=== PATIENT | female | born 1995 | race Two or more races ===

== ENCOUNTER 2016-12-31 19:11 | Emergency (ER) | payer OTHER ==
[~2016-12-31] VITALS: Ht 157.5 cm; Wt 81.2 kg
[2016-12-31 19:12] VITALS: BP 127/82
== END 2016-12-31 20:18 | disposition home or self-care (01) ==
LOC: M ED 19:43
DX: S63.632A Sprain of interphalangeal joint of right middle finger, initial encounter (principal); R07.89 Other chest pain; X50.1XXA Overexertion from prolonged static or awkward postures, initial encounter; Y92.099 Unspecified place in other non-institutional residence as the place of occurrence of the external cause; Y93.89 Activity, other specified; Y99.9 Unspecified external cause status

== ENCOUNTER 2017-01-22 18:18 | Emergency (ER) | payer OTHER ==
[~2017-01-22] VITALS: Ht 157.5 cm; Wt 86.6 kg
[2017-01-22 18:19] VITALS: BP 116/71
[2017-01-22] MEDS ORDERED: PRENTAB31 PO (18:29)
== END 2017-01-22 22:07 | disposition left against medical advice (07) ==
LOC: M ED 19:14
DX: R10.9 Unspecified abdominal pain (principal); Z53.21 Procedure and treatment not carried out due to patient leaving prior to being seen by health care provider

== ENCOUNTER 2017-01-24 16:02 | Emergency (ER) | payer OTHER ==
[~2017-01-24] VITALS: Ht 157.5 cm; Wt 83.0 kg
[~2017-01-24 16:02] MED LIST: PRENTAB31 PO
[2017-01-24] MEDS ORDERED: CLOT2CRE PV (19:45)
[2017-01-24 19:56] VITALS: BP 119/64
== END 2017-01-24 20:04 | disposition home or self-care (01) ==
LOC: M ED 18:12
DX: O98.83 Other maternal infectious and parasitic diseases complicating the puerperium (principal); B37.3 Candidiasis of vulva and vagina; Z3A.01 Less than 8 weeks gestation of pregnancy

== ENCOUNTER 2017-03-04 09:27 | Emergency (ER) | payer OTHER ==
[~2017-03-04] VITALS: Ht 157.5 cm; Wt 88.0 kg
[~2017-03-04 09:27] MED LIST changes: +CLOT2CRE PV
--- NOTE | 2017-03-04 10:54 | REP ---
Clinical: Dating and viability. Technique: Transabdominal and transvaginal first trimester obstetrical ultrasound with color Doppler evaluation. Findings: Single live early intrauterine is appreciated. Gestational sac with yolk sac and pole identified. Hubbard-rump length of 3.1 cm corresponds to 10 weeks 0 days gestational age with estimated date of delivery 09/30/2017 . heart rate equals 163 beats per minute. No gross abnormalities are identified. Impression: Single live early intrauterine at 10 weeks 0 days gestational age. Complete anatomical assessment should be performed and 19-20 weeks. Signed by Jt Busby MD 03/04/2017 10:45 A
[2017-03-04 11:16] VITALS: BP 127/73
[2017-03-04] MEDS ORDERED: TYLE325T5 PO (11:17)
== END 2017-03-04 11:21 | disposition home or self-care (01) ==
LOC: M ED 10:02
DX: O26.891 Other specified pregnancy related conditions, first trimester (principal); R10.30 Lower abdominal pain, unspecified; M79.662 Pain in left lower leg; O20.9 Hemorrhage in early pregnancy, unspecified; Z3A.10 10 weeks gestation of pregnancy

== ENCOUNTER 2017-05-12 13:00 | Emergency (ER) | payer OTHER ==
[~2017-05-12] VITALS: Ht 157.5 cm; Wt 85.0 kg
[~2017-05-12 13:00] MED LIST changes: +TYLE325T5 PO
[2017-05-12 15:27] LABS: BASO % 0.2 % (0.0-1.0); EOS % 0.4 % (0.0-3.0); LARGE UNSTAINED CELL # 0.2 K/mm3 (0.0-0.4); LARGE UNSTAINED CELL % 1.3 % (0.0-4.0); LYMPH # 1.5 K/mm3 (1.5-6.5); LYMPH % 12.1 % (24.0-44.0); MEAN CORPUSCULAR HEMOGLOBIN 29.2 pg (27.0-33.0); MEAN CORPUSCULAR HGB CONC 33.6 g/dl (32.0-36.5); MEAN CORPUSCULAR VOLUME 86.9 fl (80.0-96.0); MONO # 0.4 K/mm3 (0.0-0.8); MONO % 3.7 % (0.0-5.0); NEUTROPHILS # 9.2 K/mm3 (1.8-7.7); NEUTROPHILS % 82.3 % (36.0-66.0); PLATELET COUNT, AUTOMATED 176 k/mm3 (150-450); RED CELL DISTRIBUTION WIDTH 13.6 % (11.5-14.5); WHITE BLOOD COUNT 11.2 K/mm3 (4.0-10.0)
[2017-05-12] MEDS ORDERED: KEFL500C17 PO (15:54)
[2017-05-12 16:33] VITALS: BP 117/81
--- NOTE | 2017-05-12 16:59 | REP ---
OB ULTRASOUND: Real-time sonographic evaluation of the gravid uterus is performed. There is a single living intrauterine gestation with an estimated gestational age of 19 weeks 5 days based on LMP with ED 10/01/2017. Today's measurements indicate appropriate growth. BPD 47 mm = 20 weeks 1 day, 63rd percentile HC 172 mm = 19 weeks 6 days, 53rd percentile AC 156 mm = 20 weeks 5 days, 73rd percentile FL 32 mm = 20 weeks 0 days, 57th percentile HC/AC ratio 1.10, within normal range. Estimated weight 348 grams, 70th percentile. Cervix is closed and measures 4.2 cm in length. heart rate 157 beats per minute. Today's visualized anatomy includes the stomach, cord insertion, three-vessel cord, kidneys and bladder which are grossly unremarkable. position is vertex. Placenta is posterior and grade 0 with no previa or abruption. Amniotic fluid appears within normal limits. Signed by Colin Yanes MD 05/23/2017 08:36 A
== END 2017-05-12 16:35 | disposition home or self-care (01) ==
LOC: M ED 13:00
DX: O23.92 Unspecified genitourinary tract infection in pregnancy, second trimester (principal); R82.71 Bacteriuria; Z3A.20 20 weeks gestation of pregnancy

== ENCOUNTER 2017-05-26 19:52 | Outpatient (CLI) | payer OTHER ==
[~2017-05-26] VITALS: Ht 157.5 cm; Wt 89.0 kg
[~2017-05-26 19:52] MED LIST changes: +KEFL500C17 PO
== END 2017-05-26 21:02 | disposition home or self-care (01) ==
LOC: M LDO 19:52
PROVIDERS: ATTEND Obstetrics & Gynecology
DX: O26.852 Spotting complicating pregnancy, second trimester (principal); O99.89 Other specified diseases and conditions complicating pregnancy, childbirth and the puerperium; Z3A.21 21 weeks gestation of pregnancy; N89.8 Other specified noninflammatory disorders of vagina; O26.892 Other specified pregnancy related conditions, second trimester

== ENCOUNTER 2017-07-07 11:03 | Outpatient (CLI) | payer OTHER ==
[~2017-07-07] VITALS: Ht 157.5 cm; Wt 96.5 kg
[2017-07-07] MEDS ORDERED: AZITHROMYCIN 250 MG TAB PO ONE (13:30)
[2017-07-07] MEDS ORDERED: AMPICILLIN SOD 2 GM in D5W MINI-BAG PLUS 100 ML IV SCH (14:00)
[2017-07-07] MEDS ORDERED: BETAMETHASONE SOLUSPAN 6MG/ML INJ 5ML (J0702) IM SCH (14:00)
[2017-07-07 14:16] LABS: BASO % 0.2 % (0.0-1.0); EOS % 0.3 % (0.0-3.0); LARGE UNSTAINED CELL # 0.3 K/mm3 (0.0-0.4); LYMPH # 1.2 K/mm3 (1.5-6.5); LYMPH % 8.5 % (24.0-44.0); MEAN CORPUSCULAR HEMOGLOBIN 28.2 pg (27.0-33.0); MEAN CORPUSCULAR HGB CONC 32.7 g/dl (32.0-36.5); MEAN CORPUSCULAR VOLUME 86.2 fl (80.0-96.0); MONO # 0.4 K/mm3 (0.0-0.8); MONO % 2.6 % (0.0-5.0); NEUTROPHILS % 86.4 % (36.0-66.0); PLATELET COUNT, AUTOMATED 245 k/mm3 (150-450); RED CELL DISTRIBUTION WIDTH 14.2 % (11.5-14.5); WHITE BLOOD COUNT 13.9 K/mm3 (4.0-10.0)
[2017-07-07 15:59] LABS: CALCIUM OXALATE CRYSTALS SMALL
[2017-07-07 16:06] VITALS: BP 102/55
[2017-07-07 16:33] VITALS: BP 107/56
== END 2017-07-07 16:05 | disposition home or self-care (01) ==
LOC: M LDO 11:03 → M LDI 11:03 → UNDOADMIN 11:03 → EDSTATUS 11:20 → M LDO 16:05
PROVIDERS: ATTEND Obstetrics & Gynecology
DX: O42.912 Preterm premature rupture of membranes, unspecified as to length of time between rupture and onset of labor, second trimester (principal); Z3A.27 27 weeks gestation of pregnancy; R87.612 Low grade squamous intraepithelial lesion on cytologic smear of cervix (LGSIL)
CPT/HCPCS: 36415; 59025; 81001; 85025; 87086; 96372; J0702